=== PATIENT | female | born 1940 | race Caucasian/White ===

== ENCOUNTER → 2016-06-28 | Outpatient (CLI) | payer OTHER | LOC: FIMAGING 12:38 | DX: Z12.31 Encounter for screening mammogram for malignant neoplasm of breast (principal) | CPT/HCPCS: G0202 ==

== ENCOUNTER 2017-01-08 18:46 | Inpatient (IN) | payer OTHER ==
--- NOTE | 2017-01-08 19:31 | EDPHY ---
H & P Stated Complaint: COUGH/PRODUCTIVE/FEVER N/V Time Seen by Provider: 01/08/17 19:25 HPI/ROS: CHIEF COMPLAINT: Diarrhea, headache, cough HISTORY OF PRESENT ILLNESS: The patient is a 76 y/o female complaining of diarrhea since , 3 days ago. On Monday she developed a headache. Yesterday she developed a cough with clear sputum. Her caregiver notes she had a fever of 102. She is also nauseous but had no vomiting. Denies history of blood clots or COPD. No recent hospitalization or admission to [facility] facility or skilled nursing. She did receive a flu vaccine this year. Noted to be hypoxic on arrival to the emergency department. No prior history of O2 dependency. No chills, chest pain, shortness of breath, palpitations, vomiting, urinary complaints, lightheadedness. REVIEW OF SYSTEMS: Review of systems is unobtainable from this patient because of developmental delay. Majority of the ROS and HPI obtained from the caregiver. PAST MEDICAL HISTORY: Asthma, diabetes, mentally delayed SOCIAL HISTORY: Caregiver at bedside, lives in [place], non-smoker VITAL SIGNS: O2Sat: 86 HR: 103, Temp: 38.1 others reviewed by me GENERAL: Well-developed, well-nourished, resting comfortably in no respiratory distress. HEENT: Atraumatic. Eyes: No icterus, no injection. Mouth: dry mucous membranes. Posterior pharynx erythema, no lesions. Neck: supple with no adenopathy. LUNGS: Left base wheezes and rhonchi that clear with coughing, faint rales at right base CARDIAC: Regular rate and rhythm, no rubs, murmurs or gallops. ABDOMEN: Soft, nontender, nondistended, bowel sounds normal. BACK: No CVA tenderness. EXTREMITIES: No trauma. No edema. Range of motion is normal throughout. NEURO: Alert and oriented, grossly nonfocal. SKIN: Slightly cool lower extremities, dry, no rash. PSYCHIATRIC: Normal mentation, no agitation. Portions of this note were transcribed by a medical device assembler. I personally performed a history, physical exam, medical decision making, and confirmed accuracy of information the transcribed note. - Personal History Current Tetanus/Diphtheria Vaccine: Yes Current Tetanus Diphtheria and Acellular Pertussis (TDAP): Yes - Medical/Surgical History Hx Asthma: No Hx Chronic Respiratory Disease: No Hx Diabetes: Yes Hx Cardiac Disease: No Hx Renal Disease: No Hx Cirrhosis: No Hx Alcoholism: No Hx HIV/AIDS: No Hx Splenectomy or Spleen Trauma: No Other PMH: Mentally delayed/DIABETIC - Social History Smoking Status: Never smoked Constitutional: Initial Vital Signs Temperature (C) 38.1 C 01/08/17 18:54 Heart Rate 103 H 01/08/17 18:54 Respiratory Rate 20 01/08/17 18:54 Blood Pressure 114/68 01/08/17 18:54 O2 Sat (%) 86 L 01/08/17 18:54 O2 Delivery Mode Nasal Cannula O2 (L/minute) 3 Allergies/Adverse Reactions: No Known Allergies Allergy (Verified 02/23/13 17:13) Home Medications: Medication Instructions Recorded Alendronate Sodium [Fosamax 70 MG 70 mg PO MO@0700 11/24/11 (RX)] Multivitamins [Multivitamin (OTC)] 1 each PO DAILY 11/24/11 Cholecalciferol Vit D3 [Vitamin D3 1,000 units PO DAILY 02/23/13 1000 units (OTC)] Glimepiride [Amaryl 2 MG (RX)] 2 mg PO DAILY 02/23/13 Herbals/Supplements -Info Only 1 each PO AD 02/23/13 Simvastatin 40 mg PO HS 02/23/13 Acetaminophen [Tylenol 325mg (*)] 325 mg PO BID PRN 01/08/17 Albuterol [Proventil Inhaler HFA 1 - 2 puffs IH Q4H PRN 01/08/17 (*)] metFORMIN HCL [Metformin HCl] 1,000 mg PO BIDMEAL 01/08/17 Medical Decision Making - Diagnostics EKG Interpretation: 12-LEAD EKG: Please see the full report in [facility]. My interpretation: Sinus rhythm Imaging Results: Imaging Impressions Chest X-Ray 01/08/17 19:42 Impression: 1. Mild dependent edema or atelectasis suspected at the lung bases. Otherwise no active cardiopulmonary disease seen. Imaging: I viewed and interpreted images myself ED Course/Re-evaluation: The patient is a 76 y/o female presenting with a fever, hypoxemia and tachycardia. On exam she has pharyngeal erythema, dry mucous membranes and left base wheezes and rhonchi that clear with coughing as well as faint rales at the right base. 2019: Reviewed chest x-ray. There is mild patchiness in the lower bases, no definitive infiltrate. Her respiratory pathogen is pending. She will need to be admitted for hypoxemia and cough. Sepsis Evaluation Note: The patient presents to the ED with potential infection identified as pneumonia or pulmonary infection. The patient did have evidence of sepsis with heart rate greater than 90, and WBC less than 4000. Patient did not have evidence of end-organ dysfunction or severe sepsis. Differential Diagnosis: Differential diagnosis for fever in adults and hypoxemia was considered including but not limited to pneumonia, influenza, pulmonary embolism, COPD exacerbation, urinary tract infection, viral syndrome, and influenza. Consult/Admit Bed Type: Dr Waldrop, [facility] surg - Data Points Laboratory Results: Laboratory Results 01/08/17 19:30 01/08/17 19:30 01/08/17 01/08/17 01/08/17 20:30 19:30 19:30 WBC RBC Hgb Hct MCV MCH MCHC RDW Plt Count MPV Neut % (Auto) Lymph % (Auto) [place] % (Auto) Eos % (Auto) Baso % (Auto) Nucleat RBC Rel Count Absolute Neuts (auto) Absolute Lymphs (auto) Absolute Monos (auto) Absolute Eos (auto) Absolute Basos (auto) Absolute Nucleated RBC Immature Gran % Immature Gran # PT 12.9 SEC SEC (12.0-15.0) INR 0.98 (0.83-1.16) APTT 29.2 SEC SEC (23.0-38.0) VBG Lactic Acid Sodium 138 mEq/L mEq/L (134-144) Potassium 5.0 mEq/L mEq/L (3.5-5.2) Chloride 102 mEq/L mEq/L (97-110) Carbon Dioxide 25 mEq/l mEq/l (22-31) Anion Gap 11 mEq/L mEq/L (8-16) BUN 25 mg/dL H mg/dL (7-23) Creatinine 0.9 mg/dL mg/dL (0.6-1.0) Estimated GFR > 60 Glucose 263 mg/dL H mg/dL (70-100) Calcium 9.1 mg/dL mg/dL (8.5-10.4) Total Bilirubin 0.4 mg/dL mg/dL (0.1-1.4) Troponin I < 0.012 ng/mL ng/mL (0.000-0.034) Specimen Hemolysis 114 Nasal Influenza A PCR NEGATIVE FOR FLU A (NEGATIVE) Nasal Influenza B PCR NEGATIVE FOR FLU B (NEGATIVE) 01/08/17 01/08/17 19:30 19:30 WBC 3.52 10^3/uL L 10^3/uL (3.80-9.50) RBC 3.65 10^6/uL L 10^6/uL (4.18-5.33) Hgb 11.8 g/dL L g/dL (12.6-16.3) Hct 35.4 % L % (38.0-47.0) MCV 97.0 fL fL (81.5-99.8) MCH 32.3 pg pg (27.9-34.1) MCHC 33.3 g/dL g/dL (32.4-36.7) RDW 12.4 % % (11.5-15.2) Plt Count 145 10^3/uL L 10^3/uL (150-400) MPV 11.7 fL fL (8.7-11.7) Neut % (Auto) 67.0 % % (39.3-74.2) Lymph % (Auto) 17.9 % % (15.0-45.0) [place] % (Auto) 14.8 % H % (4.5-13.0) Eos % (Auto) 0.0 % L % (0.6-7.6) Baso % (Auto) 0.3 % % (0.3-1.7) Nucleat RBC Rel Count 0.0 % % (0.0-0.2) Absolute Neuts (auto) 2.36 10^3/uL 10^3/uL (1.70-6.50) Absolute Lymphs (auto) 0.63 10^3/uL L 10^3/uL (1.00-3.00) Absolute Monos (auto) 0.52 10^3/uL 10^3/uL (0.30-0.80) Absolute Eos (auto) 0.00 10^3/uL L 10^3/uL (0.03-0.40) Absolute Basos (auto) 0.01 10^3/uL L 10^3/uL (0.02-0.10) Absolute Nucleated RBC 0.00 10^3/uL 10^3/uL (0-0.01) Immature Gran % 0.0 % % (0.0-1.1) Immature Gran # 0.00 10^3/uL 10^3/uL (0.00-0.10) PT INR APTT VBG Lactic Acid 1.8 mmol/L mmol/L (0.7-2.1) Sodium Potassium Chloride Carbon Dioxide Anion Gap BUN Creatinine Estimated GFR Glucose Calcium Total Bilirubin Troponin I Specimen Hemolysis Nasal Influenza A PCR Nasal Influenza B PCR Medications Given: Acetaminophen (Tylenol) 650 mg PO Q4HRS PRN PRN Reason: Pain, Mild/Fever, Can Take PO Stop: 07/07/17 22:26 Last Admin: 01/08/17 22:42 Dose: 650 mg Sodium Chloride (Ns) 1,700 mls @ 283.3333 mls/hr 30 ml/kg infuse over 6 hr ( 1700 ml) IV EDNOW ONE PRN Reason: Protocol Stop: 01/09/17 02:46 Last Admin: 01/08/17 20:51 Dose: 1,700 mls Discontinued Medications Acetaminophen (Tylenol) 650 mg PO EDNOW ONE Stop: 01/08/17 21:21 Last Admin: 01/08/17 22:49 Dose: Not Given Albuterol/Ipratropium (Duoneb) 3 ml IH EDNOW ONE Stop: 01/08/17 20:20 Last Admin: 01/08/17 20:51 Dose: 3 ml Departure - Departure Disposition: [facility] Acute Clinical Impression: Hypoxemia, Cough Upper respiratory infection Qualifiers: URI type: unspecified URI Qualified Code(s): J06.9 - Acute upper respiratory infection, unspecified Condition: Fair Report Scribed for: Britt Austin Report Scribed by: Gavi Salvador Date of Report: 01/08/17 Time of Report: 19:39
--- NOTE | 2017-01-08 19:49 | CPEKG ---
Heart Rate: 92 RR Interval: 652 P-R Interval: 148 QRSD Interval: 70 QT Interval: 356 QTC Interval: 441 P Aurora: 47 QRS Aurora: -14 T Wave Aurora: 49 EKG Severity - NORMAL ECG - EKG Impression: SINUS RHYTHM Electronically Signed By: Britt Austin 08-Jan-2017 21:48:21
[2017-01-08 19:53] LABS: ADD DIFF? NO; ADD MORPH? NO; ADD SCAN? NO; ATYPICAL LYMPHOCYTE FLAG 0 (0-99); FRAGMENT RBC FLAG 0 (0-99); HEMATOCRIT 35.4 % (38.0-47.0); HEMOGLOBIN 11.8 g/dL (12.6-16.3); LEFT SHIFT FLG 0 (0-99); LIPEMIA HEMOLYSIS FLAG 80 (0-99); MEAN CELL HEMOGLOBIN 32.3 pg (27.9-34.1); MEAN CELL HEMOGLOBIN CONCENTR. 33.3 g/dL (32.4-36.7); MEAN PLATELET VOLUME 11.7 fL (8.7-11.7); PLATELET CLUMPS FLAG 0 (0-99); PLATELET COUNT 145 10^3/uL (150-400); RED BLOOD CELL COUNT 3.65 10^6/uL (4.18-5.33); RED CELL DISTRIBUTION WIDTH 12.4 % (11.5-15.2)
[2017-01-08 19:54] LABS: ANION GAP 11 mEq/L (8-16); BILIRUBIN,TOTAL 0.4 mg/dL (0.1-1.4); CALCIUM 9.1 mg/dL (8.5-10.4); CARBON DIOXIDE 25 mEq/l (22-31); CHLORIDE 102 mEq/L (97-110); CREATININE 0.9 mg/dL (0.6-1.0); GLOMERULAR FILTRATION RATE > 60; GLUCOSE 263 mg/dL (70-100); SODIUM 138 mEq/L (134-144); SPECIMEN HEMOLYSIS 114
[2017-01-08 20:01] LABS: INR 0.98 (0.83-1.16); PROTIME(PATIENT) 12.9 SEC (12.0-15.0)
[2017-01-08 20:02] LABS: APTT 29.2 SEC (23.0-38.0)
[2017-01-08 20:06] LABS: TROPONIN I < 0.012 ng/mL (0.000-0.034)
[2017-01-08] MEDS ORDERED: IPRATROPIUM/ALBUTEROL 3 ML DEYVIAL IH ONE (20:19)
[2017-01-08] MEDS ORDERED: NS 1,700 ML IV ONE (20:47)
[2017-01-08] MEDS ORDERED: IPRATROPIUM/ALBUTEROL 3 ML DEYVIAL ONE (20:56)
[2017-01-08] MEDS ORDERED: ACETAMINOPHEN 500 MG TAB PO ONE (21:20)
[2017-01-08] MEDS ORDERED: ACETAMINOPHEN 325 MG TAB ONE (21:34)
[2017-01-08] MEDS ORDERED: ONDANSETRON 4 MG/2 ML VIAL IVP PRN (22:27)
[2017-01-08] MEDS ORDERED: HYDROCODONE/APAP 5/325 TAB PO PRN (22:27)
[2017-01-08] MEDS ORDERED: HYDROmorphONE/DILAUDID 1 MG/ML INJ IVP PRN (22:27)
[2017-01-08] MEDS: ACETAMINOPHEN 325 MG TAB PO PRN (22:42)
[2017-01-08] MEDS: NS 1,000 ML IV SCH (23:56)
[2017-01-09] MEDS ORDERED: ALBUTEROL 3 ML DEYVIAL IH PRN (04:38)
[2017-01-09] MEDS ORDERED: D50W 25 GM/50 ML SYR IVP PRN (04:59)
--- NOTE | 2017-01-09 05:33 | GHP ---
[f rep st] HISTORY AND PHYSICAL DATE OF ADMISSION: 01/08/2017 SOURCE: Patient provides history, is fairly reliable. Family at bedside supplements history. EMR was also reviewed and case discussed with ED provider. HISTORY OF PRESENT ILLNESS: This is a very pleasant 76-year-old female with past medical history significant for diabetes type 2, asthma, obesity, osteoporosis, hyperlipidemia, cognitive delay who presents to the emergency department today with complaints of 3 day history of cough, rhinorrhea, congestion, fevers up to 102 at her halfway and some nausea without vomiting. Patient denies any shortness of breath or audible wheezing. She reports a cough occasionally productive of white phlegm. She has multiple sick contacts at her halfway with similar symptoms. Patient has received her flu vaccine. Patient normally does not require any oxygen; however, in the emergency department patient was noted to be 86% on room air in the triage. REVIEW OF SYSTEMS: Negative except as noted above in HPI. ALLERGIES: No known drug allergies. HOME MEDICATIONS: Tylenol 325 b.i.d. p.r.n., Metformin 1000 mg p.o. b.i.d. with meals, vitamin D3 1000 units p.o. daily, Fosamax 70 mg p.o. weekly on Monday at 7, Simvastatin 40 mg p.o. at h.s., multivitamin 1 tab p.o. daily, Amaryl 2 mg p.o. daily, Albuterol inhaler HFA 1-2 puffs p.o. q.4 hours p.r.n. for shortness of breath and magnesium and calcium supplements. PAST MEDICAL HISTORY: Significant for diabetes type 2, cognitive delay, hyperlipidemia, asthma, obesity with history of aspiration pneumonitis on past history stays. This is secondary to history of esophageal ring status post dilation and skin cancer. PAST SURGICAL HISTORY: Significant for EGD with dilation. FAMILY HISTORY: Unknown. Patient is adopted. SOCIAL HISTORY: Patient resides in a halfway with caregivers. She does use a walker at baseline but remains fairly independent otherwise. She does not smoke, drink or do drugs. CODE STATUS: Full. PHYSICAL EXAMINATION: VITAL SIGNS: On arrival to the ER: Blood pressure 114/68 , heart rate 103, respiratory rate 20, O2 sat 86% on room air, temperature 38.1. On the floor: Blood pressure 115/64, heart rate 74, respiratory rate 16 , O2 98% on 2 L by nasal cannula with a temperature of 36.4. GENERAL: No acute distress. Pleasant, frail, clinically ill appearing elderly female is lying quietly in bed but easily wakes to name. She is pleasant and cooperative. HEAD: Head normocephalic, atraumatic. EYES: Extraocular muscles grossly intact but exam is limited secondary to patient not being able to follow commands. No scleral icterus or conjunctival injection. Pupils are equal, reactive to light bilaterally and symmetric. No scleral icterus or conjunctival injection. ENT: Mucous membranes appear slightly dry. No oropharyngeal erythema or exudates. NECK: Supple. Trachea midline. CV: Regular rate and rhythm. No murmurs, rubs or gallops appreciated. RESPIRATORY : Lungs are clear to auscultation bilaterally. No wheezes, rales or rhonchi. Patient with intermittent cough. ABDOMEN: Obese, soft, nontender to palpation. No rebound, guarding or masses appreciated. : No suprapubic tenderness to palpation. No Manzo in place. MUSCULOSKELETAL: Patient with generalized weakness but able to move all extremities while lying in bed. NEURO : Cranial nerve exam is limited secondary to patient's inability follow instructions but grossly normal. No facial drooping. Moves all extremities. Sensation intact upper and lower extremities. PSYCH: Patient is quite cooperative and pleasant. She is awake, alert and oriented to person, place. She is aware of her current medical problems. LABORATORY DATA: WBC 3.52, H and H 11.4 and 35.4, platelet count is 145. No bands. PT is 12.9, INR 0.98, PTT is 29.2. VBG lactic acid 1.8. Sodium 138, potassium 5.0, chloride 102, CO2 is 25, BUN 24, creatinine 0.9, GFR of greater than 60, glucose 263, calcium 9.1, total bili 0.4, troponin is negative. Specimen is noted to be hemolyzed. Flu AB is negative. Respiratory panel is pending. Blood cultures x2 pending. IMAGING STUDIES: 1. Electrocardiogram reviewed myself showing sinus tachy in the 190s. No acute ST changes. QTc 441. 2. Chest x-ray image and report was reviewed myself showing mild dependent edema or atelectasis suspected of the lung bases, otherwise no active cardiopulmonary disease is seen. ASSESSMENT AND PLAN: A pleasant 76-year-old female with history of asthma, diabetes now with complaints of fevers, chills, cough and rhinorrhea. 1. Viral URI. Patient with multiple sick contacts. PCR panel is still pending. Blood cultures were ordered. Patient without any evidence of pneumonia on chest x-ray. Some dependent atelectasis is noted. Supportive care will be started. Patient will not be given any antibiotics at this time. She as continuous need for oxygen. 2. Hypoxia. Patient still requiring a few liters of oxygen supplementation secondary to viral illness as above. She does not have any evidence of asthma exacerbation at this time. There is no wheezing or diminished breath sounds. Continue titrating oxygen as tolerated. Incentive spirometry will also be ordered. 3. SIRS. Patient meets criteria with fever, tachycardia, tachypnea, leukopenia. Patient's lactate is within normal limits, however, continue with some IV fluid hydration. SIRS criteria has improved since arrival to the floor. 4. Anemia. Likely of chronic disease. Patient without any evidence of active bleeding. Will continue to monitor CBC. 5. Thrombocytopenia. Likely related to acute illness. Continue to monitor. 6. Diabetes type 2 with elevated blood sugars. Resume patient's Metformin and glimepiride. For now she may require insulin sliding scale but will reassess in the morning. Add on Accu-Cheks. 7. Asthma. No evidence of exacerbation. Continue with Albuterol nebulizer p.r.n. 8. Hyperlipidemia. Continue statin. 9. Cognitive delay. Patient makes her own decisions but has support. 10. Fluid, electrolyte and nutrition. Continue with IV fluid overnight. Encourage oral hydration. Electrolyte replacement if needed. ADA diet has been ordered. 11. Prophylaxis. SCDs. lovenox. 12. Code status is full. 13. Disposition. Patient will be admitted to inpatient status on the medical floor. Patient with hypoxia and multiple chronic medical issues in addition to SIRS criteria. Will continue to monitor blood cultures. PT/OT will be ordered and will try to wean patient off the oxygen. /[id number]/MODL MTDD
[2017-01-09 05:55] LABS: ADD DIFF? YES; ADD MORPH? NO; ADD SCAN? NO; ATYPICAL LYMPHOCYTE FLAG 0 (0-99); FRAGMENT RBC FLAG 0 (0-99); HEMATOCRIT 33.1 % (38.0-47.0); HEMOGLOBIN 10.6 g/dL (12.6-16.3); LEFT SHIFT FLG 0 (0-99); LIPEMIA HEMOLYSIS FLAG 80 (0-99); MEAN CELL HEMOGLOBIN 31.8 pg (27.9-34.1); MEAN CELL VOLUME 99.4 fL (81.5-99.8); MEAN PLATELET VOLUME 11.7 fL (8.7-11.7); PLATELET CLUMPS FLAG 0 (0-99); PLATELET COUNT 128 10^3/uL (150-400); RED BLOOD CELL COUNT 3.33 10^6/uL (4.18-5.33); RED CELL DISTRIBUTION WIDTH 12.6 % (11.5-15.2)
[2017-01-09 06:06] LABS: ANION GAP 8 mEq/L (8-16); CALCIUM 8.5 mg/dL (8.5-10.4); CARBON DIOXIDE 27 mEq/l (22-31); CHLORIDE 108 mEq/L (97-110); CREATININE 0.8 mg/dL (0.6-1.0); GLOMERULAR FILTRATION RATE > 60; GLUCOSE 68 mg/dL (70-100); POTASSIUM 4.3 mEq/L (3.5-5.2); SODIUM 143 mEq/L (134-144)
--- NOTE | 2017-01-09 07:34 | PDMN ---
Medical Necessity Medical necessity: est los>2mn for viral URI, hypoxia, and SIRS criteria; requires supplemental O2, PT/OT, follow cx's, IVF; comorbid DM, afib on AC, asthma, hld, cognitive delay, hx MVR; per H&P and order 01/08/17
[2017-01-09 07:41] LABS: PLATELET ESTIMATE DECREASED (ADEQ)
[2017-01-09 08:27] LABS: COLOR YELLOW; LEUKOCYTE ESTERASE,URINE TRACE (NEGATIVE); NITRITE,URINE NEGATIVE (NEGATIVE)
[2017-01-09] MEDS ORDERED: OSELTAMIVIR PHOSPHATE 75 MG CAP PO SCH (08:30)
[2017-01-09] MEDS: metFORMIN HCL 500 MG TAB PO SCH ×2 (08:49→19:52)
[2017-01-09] MEDS: ENOXAPARIN 40 MG/0.4 ML SYR SC SCH (08:49)
[2017-01-09] MEDS: GLIMEPIRIDE 2 MG TAB PO SCH (08:50)
[2017-01-09] MEDS: OSELTAMIVIR 6 MG/ML UDSYR PO SCH ×2 (11:44→19:53)
--- NOTE | 2017-01-09 14:00 | HOSPPROG ---
Hospitalist Progress Note Assessment/Plan: #Influenza A: Tamiflu, cough suppressants #Acute hypoxic resp failure: due to above. No PNA on xray. Albuterol #Cognitive delay: have 24hr failure #Type 2 DM: resume home meds #Diet: regular #Disp cont inpt admission with acute hypoxia, requiring pulse ox and nebs Subjective: SOB, cough Objective: Vital Signs Temp Pulse Resp BP Pulse Ox 37.1 C 81 18 141/80 H 96 01/09/17 07:40 01/09/17 11:17 01/09/17 11:17 01/09/17 11:17 01/09/17 11:17 Laboratory Results 01/09/17 05:15 01/09/17 05:15 01/08/17 01/09/17 01/10/17 05:59 05:59 05:59 Intake Total 1531 Balance 1531 PT 12.9 SEC (12.0-15.0) 01/08/17 19:30 INR 0.98 (0.83-1.16) 01/08/17 19:30 - Physical Exam Constitutional: no apparent distress Eyes: PERRL Ears, Nose, Mouth, Throat: dry mucous membranes Cardiovascular: regular rate and rhythym, no murmur, rub, or gallop Respiratory: rhonchi Gastrointestinal: normoactive bowel sounds Genitourinary: no bladder fullness Skin: warm Musculoskeletal: full muscle strength Neurologic: AAOx3 Psychiatric: interacting appropriately ICD10 Worksheet Patient Problems: Problems Problem Status Onset Cough Acute Hypoxemia Acute Upper respiratory infection Acute Hypoglycemia Acute
[2017-01-09] MEDS: NS 1,000 ML IV SCH (15:53)
[2017-01-09] MEDS: BENZONATATE 100 MG CAP PO PRN (19:52)
[2017-01-09] MEDS: ATORVASTATIN CALCIUM 20 MG TAB PO SCH (20:03)
[2017-01-09] MEDS: ACETAMINOPHEN 325 MG TAB PO PRN (20:03)
[2017-01-10] MEDS: NS 1,000 ML IV SCH ×3 (02:25→22:32)
[2017-01-10] MEDS: BENZONATATE 100 MG CAP PO PRN (04:56)
[2017-01-10 05:45] LABS: ANION GAP 10 mEq/L (8-16); CALCIUM 8.2 mg/dL (8.5-10.4); CARBON DIOXIDE 24 mEq/l (22-31); CHLORIDE 110 mEq/L (97-110); CREATININE 0.8 mg/dL (0.6-1.0); GLOMERULAR FILTRATION RATE > 60; GLUCOSE 63 mg/dL (70-100); POTASSIUM 4.3 mEq/L (3.5-5.2); SODIUM 144 mEq/L (134-144)
[2017-01-10] MEDS: metFORMIN HCL 500 MG TAB PO SCH ×2 (08:08→18:24)
[2017-01-10] MEDS: ENOXAPARIN 40 MG/0.4 ML SYR SC SCH (08:08)
[2017-01-10] MEDS: GLIMEPIRIDE 2 MG TAB PO SCH (08:08)
[2017-01-10] MEDS: OSELTAMIVIR 6 MG/ML UDSYR PO SCH ×2 (08:08→18:24)
[2017-01-10] MEDS ORDERED: MAGNESIUM HYDROXIDE 30 ML UDCUP PO PRN (12:11)
[2017-01-10] MEDS ORDERED: BISACODYL 10 MG SUPP PR PRN (12:11)
[2017-01-10] MEDS ORDERED: POLYETHYLENE GLYCOL 3350 17 GM PKT PO PRN (12:11)
[2017-01-10] MEDS ORDERED: LACTULOSE 20 GM/30 ML UDCUP PO PRN (12:11)
--- NOTE | 2017-01-10 14:43 | PDMN ---
Medical Necessity Medical necessity: addendum to 01/09/17 note: per edit to H&P per MD, pt does not have hx of afib and MVR.
--- NOTE | 2017-01-10 14:55 | HOSPPROG ---
Hospitalist Progress Note Assessment/Plan: 76 yo F with pmh of cognitive delay, DM2 presenting with influenza A and acute hypoxic respiratory failure # acute hypoxic respiratory failure: in setting of influenza A infection, improving but still requiring 3 L of o2 to maintain o2 sats > 90%. She is not very mobile at this point and suspect atelectasis and immobility contributing. Will get repeat CXR in am for further evaluation. IS, oob to chair, ambulation. # influenza A: tamiflu to be continued, symptomatically slowly improving, still very fatigued and hypoxic as above # pancytopenia: mild and stable, anemia 2/2 anemia of chronic disease and suspect other counts are low due to acute infection # cognitive delay: [facility], here with caregiver # DM2: well controlled, will continue current regimen # dispo: IP status, would like to wean off of o2 prior to dc given mobility concerns Patient new to my care. Old records reviewed and summarized as above. Care plan reviewed with patients home caregiver present at bedside. Subjective: no significant overnight events, patient still very somnolent but breathing better Objective: Vital Signs Temp Pulse Resp BP Pulse Ox 36.1 C 77 12 125/63 H 93 01/10/17 11:44 01/10/17 11:44 01/10/17 11:44 01/10/17 11:44 01/10/17 11:44 Laboratory Results 01/09/17 05:15 01/10/17 04:52 01/09/17 01/10/17 01/11/17 05:59 05:59 05:59 Intake Total 1531 2094 426 Output Total 375 Balance 1531 2094 51 PT 12.9 SEC (12.0-15.0) 01/08/17 19:30 INR 0.98 (0.83-1.16) 01/08/17 19:30 awake alert nad anicteric op clear rrr no mrg cta dec at bases soft nt nd no cce warm dry well perfused oriented appropratie ICD10 Worksheet Patient Problems: Problems Problem Status Onset Upper respiratory infection Acute Hypoglycemia Acute Hypoxemia Acute Cough Acute
--- NOTE | 2017-01-10 18:03 | ASMTCASEMG ---
Living Arrangements What is your living Answers: With Other (Not Family) arrangement? Who do you live with? Type Of Residence What kind of residence do Answers: Long Term you live in? Case Management Evaluation Functional: Able to Answers: Yes return Home with Prior Level of Function/Care Discharge Plan Comments Coordination Status Comments Notes: Patient will discharge to her fdc with her healthcare management when medically stable. Date Signed: 01/10/2017 06:02 PM Electronically Signed By:LATESHA Davidson
[2017-01-10] MEDS: ATORVASTATIN CALCIUM 20 MG TAB PO SCH (19:55)
[2017-01-10] MEDS: SENNOSIDES/DOCUSATE SODIUM TAB PO SCH (19:55)
[2017-01-11] MEDS: BENZONATATE 100 MG CAP PO PRN ×2 (06:17→16:08)
[2017-01-11] MEDS: SENNOSIDES/DOCUSATE SODIUM TAB PO SCH ×2 (07:50→21:52)
[2017-01-11] MEDS: GLIMEPIRIDE 2 MG TAB PO SCH (07:51)
[2017-01-11] MEDS: ENOXAPARIN 40 MG/0.4 ML SYR SC SCH (07:51)
[2017-01-11] MEDS: metFORMIN HCL 500 MG TAB PO SCH ×2 (07:51→18:29)
[2017-01-11] MEDS: NS 1,000 ML IV SCH (08:02)
[2017-01-11] MEDS: OSELTAMIVIR 6 MG/ML UDSYR PO SCH ×2 (10:09→18:29)
[2017-01-11] MEDS ORDERED: FUROSEMIDE 20 MG/2 ML VIAL IVP ONE (10:57)
--- NOTE | 2017-01-11 11:19 | ASMTCMCOM ---
CM Note CM Note Notes: PT is recommending HC PT for pt for balance issues. Discussed this with pt's caregiver Milla ([phone]) who is in agreement. [facility] alerted. DC unclear. C/M to follow. Date Signed: 01/11/2017 11:18 AM Electronically Signed By:Adrianne Reyes LCSW
--- NOTE | 2017-01-11 12:53 | HOSPPROG ---
Hospitalist Progress Note Assessment/Plan: 76 yo F with pmh of cognitive delay, DM2 presenting with influenza A and acute hypoxic respiratory failure # acute hypoxic respiratory failure: in setting of influenza A infection, improving but still requiring 3 L of o2 to maintain o2 sats > 90%. Repeat cxr personally reviewed and notable for increased interstitial edema and stable to increased left basilar opacity that is slightly increased, suspect atelectasis rather than pna but monitoring closely. Will give lasix 20 x 1. Continue IS, ambulation. # influenza A: tamiflu to be continued, symptomatically improving, as above # pancytopenia: mild and stable, anemia 2/2 anemia of chronic disease and suspect other counts are low due to acute infection, will recheck in am # cognitive delay: resides in a [facility], will return there after dc # DM2: well controlled, will continue current regimen # dispo: IP status, would like to wean off of o2 prior to dc given mobility concerns Care plan reviewed with CM. Subjective: no significant overnight events, patient currently feeling a bit better than yesterday, feels less sob, still requiring o2 Objective: Vital Signs Temp Pulse Resp BP Pulse Ox 36.7 C 67 16 125/51 H 97 01/11/17 11:30 01/11/17 11:30 01/11/17 11:30 01/11/17 11:30 01/11/17 11:30 Laboratory Results 01/09/17 05:15 01/10/17 04:52 01/10/17 01/11/17 01/12/17 05:59 05:59 05:59 Intake Total 2094 2516 Output Total 725 200 Balance 2094 1791 -200 PT 12.9 SEC (12.0-15.0) 01/08/17 19:30 INR 0.98 (0.83-1.16) 01/08/17 19:30 awake alert nad anicteric op clear rrr no mrg cta dec at bases soft nt nd no cce warm dry well perfused oriented appropratie ICD10 Worksheet Patient Problems: Problems Problem Status Onset Cough Acute Hypoxemia Acute Upper respiratory infection Acute Hypoglycemia Acute
[2017-01-11] MEDS: ACETAMINOPHEN 325 MG TAB PO PRN (16:08)
[2017-01-11] MEDS: ATORVASTATIN CALCIUM 20 MG TAB PO SCH (21:52)
[2017-01-12 04:32] LABS: HEMATOCRIT 30.9 % (38.0-47.0); HEMOGLOBIN 9.9 g/dL (12.6-16.3); MEAN CELL HEMOGLOBIN 31.6 pg (27.9-34.1); MEAN CELL VOLUME 98.7 fL (81.5-99.8); RED BLOOD CELL COUNT 3.13 10^6/uL (4.18-5.33); RED CELL DISTRIBUTION WIDTH 12.2 % (11.5-15.2)
[2017-01-12] MEDS: metFORMIN HCL 500 MG TAB PO SCH ×2 (08:45→18:37)
[2017-01-12] MEDS: SENNOSIDES/DOCUSATE SODIUM TAB PO SCH ×2 (08:45→21:08)
[2017-01-12] MEDS: GLIMEPIRIDE 2 MG TAB PO SCH (08:46)
[2017-01-12] MEDS: OSELTAMIVIR 6 MG/ML UDSYR PO SCH ×2 (08:47→18:37)
[2017-01-12] MEDS: ENOXAPARIN 40 MG/0.4 ML SYR SC SCH (08:47)
[2017-01-12] MEDS: BENZONATATE 100 MG CAP PO PRN ×3 (09:23→21:02)
--- NOTE | 2017-01-12 09:49 | HOSPPROG ---
Hospitalist Progress Note Assessment/Plan: 76 yo F with pmh of cognitive delay, DM2 presenting with influenza A and acute hypoxic respiratory failure acute hypoxic respiratory failure: in setting of influenza A infection, improving but still requiring 2 L of o2 to maintain o2 sats > 90%. Repeat cxr personally reviewed and notable for increased interstitial edema and stable to increased left basilar opacity that is slightly increased, suspect atelectasis rather than pna but monitoring closely. continue IS influenza A: tamiflu to be continued, symptomatically improving, as above pancytopenia: mild and stable, anemia 2/2 anemia of chronic disease and suspect other counts are low due to acute infection, will recheck in am stable, likely 2/2 viral illness cognitive delay: resides in a senior care, will return there after dc DM2: well controlled, will continue current regimen dispo: IP status, would like to wean off of o2 prior to dc given mobility concerns Care plan reviewed with CM. Subjective: 02 requirement improving Objective: Vital Signs Temp Pulse Resp BP Pulse Ox 36.6 C 71 18 132/89 H 91 L 01/12/17 08:00 01/12/17 08:00 01/12/17 08:00 01/12/17 08:00 01/12/17 08:00 Laboratory Results 01/12/17 04:05 01/10/17 04:52 01/11/17 01/12/17 01/13/17 05:59 05:59 05:59 Intake Total 2516 650 Output Total 725 1500 Balance 1791 -850 PT 12.9 SEC (12.0-15.0) 01/08/17 19:30 INR 0.98 (0.83-1.16) 01/08/17 19:30 - Physical Exam Constitutional: no apparent distress, appears nourished Eyes: PERRL, anicteric sclera Ears, Nose, Mouth, Throat: moist mucous membranes, hearing normal Cardiovascular: regular rate and rhythym, no murmur, rub, or gallop, No systolic murmur Respiratory: no respiratory distress, other (scattered rhonchi. no wheeze, good air movement), No no rales or rhonchi Gastrointestinal: normoactive bowel sounds, soft, non-tender abdomen Genitourinary: no bladder fullness, No macias in urethra Skin: warm, normal color Musculoskeletal: full muscle strength, no muscle tenderness Neurologic: AAOx3 Psychiatric: interacting appropriately ICD10 Worksheet Patient Problems: Problems Problem Status Onset Cough Acute Hypoxemia Acute Upper respiratory infection Acute Hypoglycemia Acute
[2017-01-12] MEDS: ATORVASTATIN CALCIUM 20 MG TAB PO SCH (21:02)
[2017-01-13] MEDS: ACETAMINOPHEN 325 MG TAB PO PRN (06:21)
[2017-01-13] MEDS: metFORMIN HCL 500 MG TAB PO SCH (08:10)
[2017-01-13] MEDS: OSELTAMIVIR 6 MG/ML UDSYR PO SCH (08:11)
[2017-01-13] MEDS: SENNOSIDES/DOCUSATE SODIUM TAB PO SCH (09:23)
[2017-01-13] MEDS: GLIMEPIRIDE 2 MG TAB PO SCH (09:25)
[2017-01-13] MEDS: ENOXAPARIN 40 MG/0.4 ML SYR SC SCH (09:53)
[2017-01-13] MEDS: BENZONATATE 100 MG CAP PO PRN (10:34)
[2017-01-13 10:56] VITALS: RESP 19
--- NOTE | 2017-01-13 11:10 | HOSPPROG ---
Hospitalist Progress Note Assessment/Plan: 76 yo F with pmh of cognitive delay, DM2 presenting with influenza A and acute hypoxic respiratory failure acute hypoxic respiratory failure: in setting of influenza A infection, improving but still requiring 2 L of o2 to maintain o2 sats > 90%. Repeat cxr personally reviewed and notable for increased interstitial edema and stable to increased left basilar opacity that is slightly increased, suspect atelectasis rather than pna but monitoring closely. continue IS influenza A: tamiflu to be continued, symptomatically improving, as above hypoxemic respiratory failure: attributable to influenza pneumonia RA challenge today no response to lasix pancytopenia: mild and stable, anemia 2/2 anemia of chronic disease and suspect other counts are low due to acute infection, will recheck in am stable, likely 2/2 viral illness cognitive delay: resides in a longterm, will return there after dc DM2: well controlled, will continue current regimen dispo: IP status, would like to wean off of o2 prior to dc given mobility concerns Care plan reviewed with CM. Subjective: coughing Objective: Vital Signs Temp Pulse Resp BP Pulse Ox 36.9 C 61 19 138/68 H 94 01/13/17 10:37 01/13/17 10:37 01/13/17 10:37 01/13/17 10:37 01/13/17 10:37 Laboratory Results 01/12/17 04:05 01/10/17 04:52 01/12/17 01/13/17 01/14/17 05:59 05:59 05:59 Intake Total 650 250 Output Total 1500 3 Balance -850 -3 250 PT 12.9 SEC (12.0-15.0) 01/08/17 19:30 INR 0.98 (0.83-1.16) 01/08/17 19:30 - Physical Exam Constitutional: no apparent distress, appears nourished Eyes: PERRL, anicteric sclera Ears, Nose, Mouth, Throat: moist mucous membranes, hearing normal Cardiovascular: regular rate and rhythym, no murmur, rub, or gallop Respiratory: no respiratory distress, No no rales or rhonchi Gastrointestinal: normoactive bowel sounds, soft, non-tender abdomen Genitourinary: no bladder fullness, No macias in urethra Skin: warm, normal color Musculoskeletal: full muscle strength Neurologic: AAOx3 ICD10 Worksheet Patient Problems: Problems Problem Status Onset Cough Acute Hypoxemia Acute Upper respiratory infection Acute Hypoglycemia Acute
--- NOTE | 2017-01-13 11:12 | PDHOMEO2F ---
Home Oxygen Face to Face Home Orders: I certify that a physician or a nurse practitioner or physician's res habilitation assistant has had a [id number] encounter with this patient on the date of this order due to the diagnosis listed, which relates to the primary reason the patient requires home oxygen. Alternative treatments have been tried, or considered, and deemed ineffective. It is anticipated that supplemental oxygen will result in improvement with treatment. Home oxygen qualifying diagnosis: influenza pneumonia SpO2 on room air (%): 82 Frequency of home oxygen needed: continuous Home oxygen liters per minute: 2 Home oxygen delivery device: nasal cannula Concentrator: No E-tanks for mobility and back up: No I certify that, based on these findings, the home oxygen is medically necessary for this patient for the following length of time. Length of time home oxygen needed: 1 week
[2017-01-13] MEDS ORDERED: OSELTAMIVIR 6 MG/ML UDSYR PO ONE (12:30)
[2017-01-13 12:59] VITALS: BP 126/63; PULSE 76; TEMP 98.7; O2SAT 92
--- NOTE | 2017-01-13 14:48 | PDIAF ---
- Diagnosis Diagnosis: influenza Code Status: Full Code - Medication Management Discharge Medications: Medications to Continue on Transfer Alendronate Sodium [Fosamax 70 MG (*)] 70 mg PO MO@0700 11/24/11 [Last Taken ] Multivitamins [Multivitamin (*)] 1 each PO DAILY 11/24/11 [Last Taken 01/08/17] Cholecalciferol Vit D3 [Vitamin D3 (*)] 1,000 units PO DAILY 02/23/13 [Last Taken 01/08/17] Glimepiride [Amaryl 2 MG (*)] 2 mg PO DAILY 02/23/13 [Last Taken 01/08/17] Herbals/Supplements -Info Only 1 each PO AD 02/23/13 [Last Taken 02/22/13] Simvastatin 40 mg PO HS 02/23/13 [Last Taken 01/08/17] Acetaminophen [Tylenol 325mg (*)] 325 mg PO BID PRN 01/08/17 [Last Taken ] Albuterol [Proventil Inhaler HFA (*)] 1 - 2 puffs IH Q4H PRN 01/08/17 [Last Taken Unknown] metFORMIN HCL [Metformin HCl] 1,000 mg PO BIDMEAL 01/08/17 [Last Taken 01/08/17 18:00] Discharge Medications: Refer to the Discharge Home Medication list for PRN reason. - Orders Services needed: Registered Nurse, Physical Therapy Isolation Type: Droplet Isolation - Follow Up Care Current Providers and Referrals: Olga De La Rosa MD [Primary Care Provider] - As per Instructions
--- NOTE | 2017-01-13 16:40 | ASMTCMCOM ---
CM Note CM Note Notes: [facility] call for change of qualifying diagnosis. Yovany Germain made appropriate changes in face to face. Order faxed to [facility] [phone] Successfully. Date Signed: 01/13/2017 04:39 PM Electronically Signed By:Esperanza Roa RN
--- NOTE | 2017-01-13 16:41 | ASDISCHSUM ---
Discharge Information Plan Status:Senior Living Medically Cleared to Leave:01/12/2017 Discharge Date:01/13/2017 02:30 PM CM D/C Disposition:Home Health Service ADT D/C Disposition:Home Health Service Projected Discharge Date:01/13/2017 11:00 AM Transportation at D/C: Discharge Delay Reason: Follow-Up Date:01/13/2017 11:00 AM Discharge Slot: Final Diagnosis:Cough, fever Placement Information Referral Type:*Home Health Care Services Referral ID:[id number] Provider Name:[facility] Address 1:[address] [address] Address 2: City:[place] Selection Factors: State:[place] Patient Contact Information Contact Name:DAVI Relationship:Other Address:[address] Work Phone: [facility]:[place] Alternate Phone: State/Zip Code:[place] [address] Email: Financial Information Financial Class: Primary Plan Desc:MEDICARE INPATIENT Primary Plan Number:[id number] Secondary Plan Desc: Secondary Plan Number: Assessment Information [facility] Initial CM Assessment Living Arrangements What is your living Answers: With Other (Not Family) arrangement? Who do you live with? Type Of Residence What kind of residence do Answers: Senior Living you live in? Case Management Evaluation Functional: Able to Answers: Yes return Home with Prior Level of Function/Care Discharge Plan Comments Coordination Status Comments Notes: Patient will discharge to her correction with her in home caregiver when medically stable. Date Signed: 01/10/2017 06:02 PM Electronically Signed By:LATESHA Davidson [facility] CM Progress Note CM Note CM Note Notes: PT is recommending HC PT for pt for balance issues. Discussed this with pt's caregiver Milla ([phone]) who is in agreement. [facility] alerted. CASSIE franklin. C/M to follow. Date Signed: 01/11/2017 11:18 AM Electronically Signed By:Adrianne Reyes LCSW LACE LACE Length of stay for Answers: 4-6 days current admission Acuity / Level of Care Answers: Was the patient admitted to hospital via the emergency department? Yes: Comorbidities - select Answers: Diabetes without all that apply complications Emergency dept visits in Answers: 1 last 6 months Score: 9 Date Signed: 01/12/2017 09:40 AM Electronically Signed By:Esperanza Roa RN [facility] CM Progress Note CM Note CM Note Notes: [facility] call for change of qualifying diagnosis. Yovany Germain made appropriate changes in face to face. Order faxed to [facility] [phone] Successfully. Date Signed: 01/13/2017 04:39 PM Electronically Signed By:Esperanza Roa RN Intervention Information
--- NOTE | 2017-01-13 17:27 | GDS ---
[f rep st] DISCHARGE SUMMARY DISCHARGE DIAGNOSES: 1. Influenza pneumonia. 2. Acute hypoxemic respiratory failure. 3. Diabetes. 4. Cognitive delay. HOSPITAL COURSE: Please see Admission History and Physical by Dr. Lyn Feng. The patient present s with 3-day history of cough, rhinorrhea, congestion, fever. She had a chest x-ray that showed depe ndent edema. She was on 2 L of oxygen. She was influenza positive. She did not have sepsis. The patient was attempted to be weaned from oxygen but she was 82% on room air. She attempted diures is, however, did not have any impact on lowering her oxygen requirement. She is discharged home with oxygen. She completed her course of 5 days of Tamiflu, her blood cultures were negative. She was d ischarged home. She was seen by Physical Therapy, who recommended home care. /[id number]/MODL
== END 2017-01-13 14:30 | disposition home health service (06) | DRG 193 ==
LOC: F1N 23:19
PROVIDERS: ADMIT Hospitalist; ATTEND Hospitalist
DX: J10.00 Influenza due to other identified influenza virus with unspecified type of pneumonia (principal); J96.01 Acute respiratory failure with hypoxia; E11.9 Type 2 diabetes mellitus without complications; E78.5 Hyperlipidemia, unspecified; J45.909 Unspecified asthma, uncomplicated; E66.9 Obesity, unspecified; M81.0 Age-related osteoporosis without current pathological fracture; D63.8 Anemia in other chronic diseases classified elsewhere; Z79.84 Long term (current) use of oral hypoglycemic drugs
CPT/HCPCS: 97110-GP; 97116-GP; 97161-GP; G8978-GP-CI; G8979-GP-CI; J1650; J1940

== ENCOUNTER → 2017-07-04 | Outpatient (CLI) | payer OTHER | LOC: FIMAGING 13:37 | PROVIDERS: ATTEND Family Medicine Geriatric Medicine | DX: Z12.31 Encounter for screening mammogram for malignant neoplasm of breast (principal) ==